=== PATIENT | male | born 1960 | race Caucasian/White ===

== ENCOUNTER 2022-06-04 09:57 | Emergency (ER) | payer BC, OTHER ==
[~2022-06-04] VITALS: Ht 182.9 cm; Wt 106.6 kg
--- NOTE | 2022-06-04 10:20 | NUR ---
Irrigated left middle finger lac with 0.9 NS and povidone iodine. Pt tolerated it and with no active bleeding at this time. at the bedside. Kept comfortable, offered cold water.
[2022-06-04] MEDS ORDERED: ACETAMINOPHEN 325 MG TABLET PO ONE (10:45)
[2022-06-04] MEDS ORDERED: TDAP DIPH,PERTUSS,TET VAC/PF 0.5 ML DISP.SYRIN IM ONE ×2 (10:45→10:46)
[2022-06-04] MEDS ORDERED: ACETAMINOPHEN 325 MG TABLET ONE (10:46)
--- NOTE | 2022-06-04 11:21 | NUR ---
Allowed dermabond to dry and covered affected area with gauze and protected it with baseball splint. Pt tolerated it well.
[2022-06-04] MEDS ORDERED: ACET-2154 PO (11:22)
[2022-06-04 11:26] VITALS: BP 128/77
[2022-06-04] MEDS ORDERED: AMOX-430 PO (12:42)
[2022-06-04] MEDS ORDERED: HYDR-3972 PO (12:47)
== END 2022-06-04 11:35 | disposition home or self-care (01) ==
LOC: ER 09:57
DX: S62.663A Nondisplaced fracture of distal phalanx of left middle finger, initial encounter for closed fracture (principal); S61.303A Unspecified open wound of left middle finger with damage to nail, initial encounter; X58.XXXA Exposure to other specified factors, initial encounter; Y92.89 Other specified places as the place of occurrence of the external cause; E78.5 Hyperlipidemia, unspecified; E11.9 Type 2 diabetes mellitus without complications
CPT/HCPCS: 73130; 90715; A4663